=== PATIENT | female | born 1945 | race Caucasian/White ===

== ENCOUNTER → 2019-08-12 12:29 | Outpatient (CLI) | payer SELFPAY ==
[~2019-08-12 12:29] MED LIST: FERROUS SULFAT325 MG PO; MIRAPEX0.25 MG PO; MYRBETRIQ50 MG PO; OMEPRAZOLE40 MG PO; PAXIL40 MG PO; PREDNISONE1 MG PO; SINGULAIR10 MG PO
[2019-08-14 08:35] VITALS: BMI 31.9
== END | disposition home or self-care (01) ==
LOC: D.LABREF 12:29
PROVIDERS: ATTEND Internal Medicine Pulmonary Disease
DX: Z11.59 Encounter for screening for other viral diseases (principal)

== ENCOUNTER → 2019-08-14 07:28 | Day surgery (SDC) | payer MEDICARE, BC ==
[~2019-08-14] VITALS: Ht 160 cm; Wt 81.6 kg
--- NOTE | ~2019-08-14 | OP ---
PATIENT NAME: MICHAEL BARBOZA MEDICAL RECORD: [id number] :43 LOCATION:[facility] ADMISSION DATE: SURGEON: ROSEANNA CORREA DPM DATE OF OPERATION: 08/14/2019 PREOPERATIVE DIAGNOSES: 1. Hallux abductovalgus, right foot. 2. Plantar plate rupture, right second metatarsophalangeal joint. POSTOPERATIVE DIAGNOSES: 1. Hallux abductovalgus, right foot. 2. Plantar plate rupture, right second metatarsophalangeal joint. PROCEDURES: 1. Right Ottoniel bunionectomy. 2. Right Mayra osteotomy, second metatarsal. 3. Right plantar plate repair. ANESTHESIA: Preoperative popliteal block per the anesthesia department as well as intraoperative general anesthesia. HEMOSTASIS: Esmarch around the right ankle. PREOPERATIVE DETAILS: The patient was taken to the OR and placed on the operating table in a supine position. This was followed by induction of general anesthesia. The right extremity was then prepped and draped in usual aseptic technique followed by exsanguination with Esmarch and the Esmarch was left on the ankle. PROCEDURE #1: Right Ottoniel bunionectomy. A 15-blade was used to create a 2.5 cm linear incision over the dorsal aspect of the right hallux. The incision was deepened down to the deep tissue, which was incised exposing the bone. At this time, a sagittal saw was used to remove a wedge which was medially based. The bone was removed. The osteotomy was closed down realigning the toe. At this time, a 20 mm long 2.5 mm headless screw was placed across the osteotomy with excellent fixation and alignment. Wound was flushed. The deep tissue was reapproximated with 2-0 Vicryl, the subcutaneous tissue with 4-0 Rapide and the skin was closed with 4-0 Rapide in a subcuticular technique followed by Dermabond. PROCEDURE #2: Right Mayra osteotomy, second metatarsal. A 15-blade was used to create a curvilinear incision over the dorsal aspect of the second metatarsal extending up on top of the proximal phalanx of the second digit. The incision was deepened down through subcutaneous tissue to the extensor longus tendon and brevis tendon, which was incised longitudinally between them giving access to the second MPJ. At this time, a McGlamry scoop elevator was used to free the plantar structures. A sagittal saw was then used to create a dorsal distal to plantar proximal osteotomy through the metatarsal head. The capital fragment was moved posteriorly and temporarily fixated. PROCEDURE #3: Plantar plate repair, right second metatarsophalangeal joint. Initial visualization did show a tear on the lateral third of the plantar plate. At this time, a 15-blade was used to free the plantar plate attachment to the base of the proximal phalanx. Scorpion passer was used to pass FiberWire in 3 [address] in the plantar plate, 2 small drill holes were made in the base OPERATIVE REPORT [id number] MICHAEL BARBOZA of the proximal phalanx and the FiberWire was passed up through the drill holes. At this time, the Mayra osteotomy was fixated putting the metatarsal back into proper alignment with 2 popoff screws. Now with the metatarsal in proper length, these FiberWire that passed up to the base of the proximal phalanx were then sutured with surgeon's knots with the digit held in plantar flexion. Once the surgeon's knots were secured, the digit was noted to be in neutral position. At this time, 2-0 Vicryl was used to reapproximate and close the joint capsule and reapproximate the extensor longus and extensor brevis tendons followed by closure of the subcutaneous tissue with 4-0 Rapide and the skin was closed with 4-0 Rapide in a subcuticular technique followed by Dermabond. Adaptic, 4 x 4 and Conform were used to dress the wound followed by application of modified Pandya compression dressing. The Esmarch was of course removed. POSTOPERATIVE DETAILS: The patient tolerated the procedure well and left the OR with vital signs stable and vascular status at preoperative levels. The patient was transported to recovery per anesthesia in stable condition. TRANSINT:[id number] Voice Confirmation ID: [id number] DOCUMENT ID: [id number] ROSEANNA CORREA DPM CC: [id number] DICTATION DATE: 08/14/19 1202 CORRECTIONAL COUNSELOR: 08/14/19 1415 [facility] [address] [place] [address]
[2019-08-14 08:08] LABS: HEMATOCRIT 34.5 % (36.0-48.0); HEMOGLOBIN 11.3 g/dL (12-16); MCH 35.1 pg (26.0-34.0); MCHC 32.8 g/dL (31.0-37.0); MCV 107.1 fL (80.0-100.0); MEAN PLATELET VOLUME 9.4 fL (7.4-10.4); RBC 3.22 10x6/uL (4.00-5.40); RDW 12.3 % (11.5-14.5); WBC 3.9 10x3/uL (4.8-10.8)
[2019-08-14 08:35] VITALS: BP 114/78; Ht 160 cm; Wt 81.6 kg
== END | disposition home or self-care (01) ==
LOC: D.OPS 07:28
PROVIDERS: Anesthesiology; ATTEND Podiatrist
DX: M20.11 Hallux valgus (acquired), right foot (principal); S93.691A Other sprain of right foot, initial encounter; X58.XXXA Exposure to other specified factors, initial encounter